=== PATIENT | male | born 1990 | race Hispanic/Latino ===

== ENCOUNTER 2018-07-26 07:19 | Emergency (ER) | payer SELFPAY ==
[2018-07-26] MEDS ORDERED: NA CHLORIDE 0.9% 1,000 ML ONE (07:51)
[2018-07-26] MEDS ORDERED: FAMOTIDINE 20 MG/2 ML VIAL IV ONE (07:51)
[2018-07-26] MEDS ORDERED: ONDANSETRON 4 MG/2 ML VIAL ONE (07:51)
[2018-07-26 08:12] LABS: Absolute Lymphocytes (CBC) 1.7 K/uL (0.7-4.9); Absolute Monocytes 1.1 K/uL (0.1-1.3); Absolute Neutrophil 12.8 K/uL (1.8-8.0); Basophils % 0.3 % (0-1.3); Eosinophils % 0.6 % (0-4.4); Hematocrit 49.3 % (39.6-49.0); Lymphocytes % 11.1 % (15.3-44.8); MCH 29.7 pg (27.0-35.0); MCV 88.1 fL (80-100); MPV 10.1 fL (7.6-11.3); RBC Red Blood Cell Count 5.59 M/uL (4.33-5.43)
[2018-07-26 08:17] LABS: Urine Bacteria 20-50 /HPF (NONE SEEN); Urine RBC <5 /HPF (NONE SEEN)
[2018-07-26 08:18] LABS: Urine Culture Reflex Order REFLEXED; Urine Mucus SLIGHT /HPF (NONE SEEN)
[2018-07-26 08:32] LABS: Bilirubin Direct 0.1 mg/dL (0-0.2); Bilirubin Total 0.7 mg/dL (0.2-1.0); Potassium 3.8 mmol/L (3.5-5.1); Protein, Total 7.6 g/dL (6.4-8.2)
--- NOTE | 2018-07-26 09:11 | EDPHYS ---
Physician Documentation [facility] Name: Frandy Hidalgo Jr Age: 27 yrs Sex: Male : 1990 Arrival Date: 07/26/2018 Time: 07:21 Bed 16 Private MD: ED Physician Asim Mitchell HPI: 07/26 07:35 This 27 yrs old Male presents to ER via Ambulatory with complaints of cp Epigastric Pain, Vomiting, Headache. 07:35 The patient presents with abdominal pain in the epigastric area. Onset: The cp symptoms/episode began/occurred this morning, at 01:00. Associated signs and symptoms: Pertinent positives: nausea and vomiting, diarrhea, left low back pain, Pertinent negatives: blood in stools, fever, headache, vomiting blood. The symptoms are described as stabbing. Severity of pain: in the emergency department the pain is unchanged. Historical: - Allergies: 07:28 No Known Allergies; jl7 ROS: 07:40 Constitutional: Negative for body aches, chills, fever, poor PO intake. cp 07:40 Eyes: Negative for injury, pain, redness, and discharge. cp 07:40 ENT: Negative for drainage from ear(s), ear pain, sore throat, difficulty swallowing, difficulty handling secretions. 07:40 Cardiovascular: Negative for chest pain, edema, palpitations. 07:40 Respiratory: Negative for cough, shortness of breath, wheezing. 07:40 Abdomen/GI: Positive for abdominal pain, nausea, vomiting, diarrhea, Negative for constipation, dysphagia, hematemesis, black/tarry stool, rectal bleeding. 07:40 Back: Positive for pain at rest, of the left low back and left mid back. 07:40 : Negative for urinary symptoms, testicular pain 07:40 Skin: Negative for cellulitis, rash. 07:40 Neuro: Negative for dizziness, headache, weakness. 07:40 All other systems are negative. Exam: 07:45 Constitutional: The patient appears in no acute distress, alert, awake, cp non-diaphoretic, non-toxic, well developed, well nourished. 07:45 Head/Face: Normocephalic, atraumatic. cp 07:45 Eyes: Periorbital structures: appear normal, Conjunctiva: normal, no exudate, no injection, Sclera: no appreciated abnormality, Lids and lashes: appear normal, bilaterally. 07:45 ENT: External ear(s): are unremarkable, Ear canal(s): are normal, clear, TM's: bulging, is not appreciated, bilaterally, dullness, bilaterally, erythema, is not appreciated, bilaterally, Nose: is normal, Mouth: is normal, Posterior pharynx: is normal, airway is patent, no erythema, no exudate. 07:45 Neck: ROM/movement: is normal, is supple, without pain, no range of motions limitations, no nuchal rigidity. 07:45 Chest/axilla: Inspection: normal, Palpation: is normal, no crepitus, no tenderness. 07:45 Cardiovascular: Rate: normal, Rhythm: regular, Heart sounds: murmur, not appreciated, Edema: is not appreciated, JVD: is not appreciated. 07:45 Respiratory: the patient does not display signs of respiratory distress, Respirations: normal, no use of accessory muscles, no retractions, no splinting, no tachypnea, labored breathing, is not present, Breath sounds: are clear throughout, no decreased breath sounds, no stridor, no wheezing. 07:45 Abdomen/GI: Inspection: abdomen appears normal, Bowel sounds: active, all quadrants, Palpation: soft, in all quadrants, moderate abdominal tenderness, in the epigastric area, rebound tenderness, is not appreciated, involuntary guarding, is not appreciated. 07:45 Back: pain, that is mild, of the left low back and left mid back, ROM is normal, Straight leg raises: of both lower extremities does not illicit pain. 07:45 Skin: cellulitis, is not appreciated, no rash present. 07:45 Neuro: Orientation: to person, place \T\ time. Mentation: lucid, able to follow commands, Cerebellar function: is grossly normal, Motor: moves all fours, strength is normal, Sensation: no obvious gross deficits. Vital Signs: 07:28 BP 131 / 83; Pulse 93; Resp 16 S; Temp 99(O); Pulse Ox 99% on R/A; Weight 95.25 kg (R); jl7 Height 5 ft. 8 in. (172.72 cm) (R); Pain 8/10; 08:39 BP 130 / 64; Pulse 66; Resp 15; Pulse Ox 100% on R/A; Pain 3/10; iw 07:28 Body Mass Index 31.93 (95.25 kg, 172.72 cm) jl7 MDM: 07:32 Patient medically screened. cp 09:00 Data reviewed: vital signs, nurses notes, lab test result(s), radiologic studies, plain cp films. 09:00 Refusal of service: The patient/guardian displays adequate decision making capability cp and despite a detailed discussion of alternatives, benefits, risks, and consequences refuses: CT Scan. 07/26 07:30 Order name: Urine Microscopic Only; Complete Time: 08:24 cp 07/26 08:24 Interpretation: Normal except: UBACT 20-50. cp 07/26 07:37 Order name: Basic Metabolic Panel; Complete Time: 08:45 cp 07/26 08:45 Interpretation: Normal except: GLUC 107; GFR 88. cp 07/26 07:37 Order name: CBC with Diff; Complete Time: 08:24 cp 07/26 08:24 Interpretation: Normal except: WBC 15.8; RBC 5.59; HCT 49.3; DONY% 81.0; NEUT A 12.8; cp LYM% 11.1. 07/26 07:37 Order name: Creatinine for Radiology; Complete Time: 08:45 cp 07/26 08:45 Interpretation: Within normal limits. cp 07/26 07:37 Order name: Hepatic Function; Complete Time: 08:45 cp 07/26 08:45 Interpretation: Normal except: GLOB 3.6. cp 07/26 07:37 Order name: Lipase; Complete Time: 08:45 cp 07/26 08:45 Interpretation: Within normal limits: LIP 145. cp 07/26 07:30 Order name: Urine Dipstick-Ancillary (obtain specimen); Complete Time: 07:52 cp 07/26 07:37 Order name: XRAY Chest (1 view) cp 07/26 08:20 Order name: Urine Culture EDMS 07/26 08:44 Order name: Urine Dipstick--Ancillary (enter results) bd 07/26 07:37 Order name: IV Saline Lock; Complete Time: 07:52 cp 07/26 07:37 Order name: Labs collected and sent; Complete Time: 07:52 cp Administered Medications: 07:58 Drug: Pepcid 20 mg Route: IVP; Site: left antecubital; iw 08:50 Follow up: Response: No adverse reaction iw 07:58 Drug: Zofran 4 mg Route: IVP; Site: left antecubital; iw 08:30 Follow up: Response: No adverse reaction iw 07:58 Drug: NS 0.9% 1000 ml Route: IV; Rate: 1 bolus; Site: left antecubital; Disposition: 09:23 Co-signature as Attending Physician, Asim Mitchell MD I agree with the assessment and ishan plan of care. Disposition: 07/26/18 09:10 Patient has left against medical advice. Impression: Epigastric pain. - Patients states they are going to Home. - Condition is Stable. Follow up: Private Physician; When: Today; Reason: Recheck today's complaints. - Problem is new. - Symptoms have improved. Signatures: Dispatcher [employer] EDOH Asim Mitchell MD MD cha Williams, Irene, RN RN iw Asim Noonan PA PA cp Wise, Tara, RN RN tw2 Parveen Samano RN RN jl7 Corrections: (The following items were deleted from the chart) 08:24 08:24 Normal except: WBC 15.8; RBC 5.59; HCT 49.3. cp cp 08:57 08:25 Abdomen Pelvis W Con+CT.RAD.BRZ ordered. [facility] 09:12 09:10 07/26/2018 09:10 Patients has left against medical advice. Impression: Epigastric tw2 pain. Patient states they are going to Home. Condition is Stable. Follow up: Private Physician; When: Today; Reason: Recheck today's complaints. Problem is new. Symptoms have improved. cp
--- NOTE | 2018-07-26 09:13 | ER ---
Nurse's Notes [facility] Name: Frandy Hidalgo Jr Age: 27 yrs Sex: Male : 1990 Arrival Date: 07/26/2018 Time: 07:21 Bed 16 Private MD: Diagnosis: Epigastric pain Presentation: 07/26 07:27 Presenting complaint: Patient states: Epigastric and left low back pain started last jl7 night at 0100, N/V/D since yesterday morning. Transition of care: patient was not received from another setting of care. Onset of symptoms was July 26, 2018. Risk Assessment: Do you want to hurt yourself or someone else? Patient reports no desire to harm self or others. Initial Sepsis Screen: Does the patient meet any 2 criteria? No. Patient's initial sepsis screen is negative. Does the patient have a suspected source of infection? No. Patient's initial sepsis screen is negative. Care prior to arrival: None. 07:27 Method Of Arrival: Ambulatory jl7 07:27 Acuity: ABRAM 3 jl7 Historical: - Allergies: 07:28 No Known Allergies; jl7 Screenin:27 Abuse screen: Denies threats or abuse. Denies injuries from another. Nutritional iw screening: No deficits noted. Tuberculosis screening: No symptoms or risk factors identified. Fall Risk None identified. Assessment: 08:26 General: Appears in no apparent distress. Behavior is calm, cooperative. Pain: iw Complains of pain in epigastric area Pain currently is 7 out of 10 on a pain scale. Quality of pain is described as sharp, Is intermittent. Neuro: Level of Consciousness is awake, alert, obeys commands, Oriented to person, place, time, situation, Moves all extremities. Full function. Cardiovascular: Capillary refill < 3 seconds in bilateral fingers Patient's skin is warm and dry. Respiratory: Respiratory effort is even, unlabored, Respiratory pattern is regular, symmetrical. GI: Abdomen is flat, non-distended, Reports upper abdominal pain, diarrhea, epigastric pain, nausea, vomiting. Derm: Skin is intact, is healthy with good turgor. Musculoskeletal: Range of motion: intact in all extremities. 08:38 Reassessment: Patient appears in no apparent distress at this time. Patient and/or iw family updated on plan of care and expected duration. Pain level reassessed. Patient is alert, oriented x 3, equal unlabored respirations, skin warm/dry/pink. pain now 3/10 Patient states feeling better. Patient states symptoms have improved. 08:58 Reassessment: pt IV infiltrated, pt advised that he needs another IV for CT, pt refuses iw IV, Jose Noonan notified. Pt agrees to sign out AMA. Pt states pain has completely resolved and does not want another IV or CT. Vital Signs: 07:28 BP 131 / 83; Pulse 93; Resp 16 S; Temp 99(O); Pulse Ox 99% on R/A; Weight 95.25 kg (R); jl7 Height 5 ft. 8 in. (172.72 cm) (R); Pain 8/10; 08:39 BP 130 / 64; Pulse 66; Resp 15; Pulse Ox 100% on R/A; Pain 3/10; iw 07:28 Body Mass Index 31.93 (95.25 kg, 172.72 cm) jl7 ED Course: 07:21 Patient arrived in ED. as 07:26 Juany Jones, RN is Primary Nurse. iw 07:28 Asim Noonan PA is PHCP. cp 07:28 Asim Mitchell MD is Attending Physician. cp 07:28 Triage completed. jl7 07:29 Arm band placed on right wrist. jl7 07:50 Initial lab(s) drawn, by me, sent to lab. Inserted saline lock: 20 gauge in left iw antecubital area, using aseptic technique. Blood collected. 08:06 XRAY Chest (1 view) In Process Unspecified. EDMS 08:55 Note: attempted to get pt for ct but he refused the iv, and provider was notified that jr1 he wants to sign out ama. 09:10 No provider procedures requiring assistance completed. IV discontinued, intact, iw bleeding controlled, No redness/swelling at site. Pressure dressing applied. Administered Medications: 07:58 Drug: Pepcid 20 mg Route: IVP; Site: left antecubital; iw 08:50 Follow up: Response: No adverse reaction iw 07:58 Drug: Zofran 4 mg Route: IVP; Site: left antecubital; iw 08:30 Follow up: Response: No adverse reaction iw 07:58 Drug: NS 0.9% 1000 ml Route: IV; Rate: 1 bolus; Site: left antecubital; iw Outcome: 09:10 AMA AMA form signed iw 09:10 Condition: improved 09:10 Discharge instructions given to patient, Instructed on follow up and referral plans. 09:12 Patient left the ED. tw2 Signatures: Dispatcher [employer] EDSherly Dominguez Amelia as Williams, Irene, RN RN iw Asim Noonan PA PA cp Wise, Tara, RN RN tw2 Parveen Samano RN RN jl7
--- NOTE | 2018-07-26 09:16 | RAD REPORT ---
EXAM DESCRIPTION: Vickie Single View07/26/2018 8:06 am CLINICAL HISTORY: Abdominal COMPARISON: none FINDINGS: The lungs appear clear of acute infiltrate. The heart is normal size IMPRESSION: No acute abnormalities displayed
[2018-07-26 19:32] LABS: Urine Blood NEGATIVE (NEG); Urine Glucose NEGATIVE (NEG); Urine Protein NEGATIVE (NEG)
== END 2018-07-26 09:12 | disposition left against medical advice (07) ==
LOC: ER 07:19
DX: R10.13 Epigastric pain (principal)
CPT/HCPCS: 36415; 71045; 80048; 80076; 81003; 81015; 83690; 85025; 87086; 87088; 96374; 96375; 99284; J2405; J7030

== ENCOUNTER 2018-12-06 05:40 | Emergency (ER) | payer SELFPAY ==
[2018-12-06] MEDS ORDERED: CODEINE 30MG/APAP 300MG TAB ONE (06:36)
--- NOTE | 2018-12-06 06:57 | EDPHYS ---
Physician Documentation [facility] Name: Frandy Hidalgo Jr Age: 28 yrs Sex: Male : 1990 Arrival Date: 12/06/2018 Time: 05:41 Bed 6 Private MD: ED Physician Jovanni Camp HPI: 12/06 06:20 This 28 yrs old Male presents to ER via Ambulatory with complaints of Fever, cp Ear Pain, Diarrhea. 06:20 The patient reports fever, not measured (subjective). cp 06:20 Onset: The symptoms/episode began/occurred last night. cp 06:20 Associated signs and symptoms: Pertinent positives: diarrhea, earache. Severity of cp symptoms: in the emergency department the symptoms are unchanged despite home interventions. Historical: - Allergies: 05:59 No Known Allergies; ak1 - Home Meds: 05:59 None [Active]; ak1 - PMHx: 05:59 None; ak1 - PSHx: 05:59 None; ak1 - Immunization history:: Adult Immunizations unknown. - Social history:: Smoking status: Patient uses tobacco products, smokes one pack cigarettes per day. - Ebola Screening: : No symptoms or risks identified at this time. ROS: 06:25 Constitutional: Negative for body aches, chills, fever, poor PO intake. cp 06:25 Eyes: Negative for injury, pain, redness, and discharge. cp 06:25 ENT: Positive for drainage from ear(s), ear pain, Negative for sore throat, difficulty cp swallowing, difficulty handling secretions. 06:25 Neck: Negative for pain with movement, pain at rest, stiffness. 06:25 Cardiovascular: Negative for chest pain, palpitations. 06:25 Respiratory: Negative for cough, wheezing. 06:25 Abdomen/GI: Positive for diarrhea, Negative for abdominal pain, vomiting, constipation. 06:25 Skin: Negative for cellulitis, rash. 06:25 Neuro: Negative for altered mental status, dizziness. 06:25 All other systems are negative. cp Exam: 06:30 Constitutional: The patient appears in no acute distress, alert, awake, non-toxic, well cp developed, well nourished, uncomfortable. 06:30 Head/Face: Normocephalic, atraumatic. cp 06:30 Eyes: Periorbital structures: appear normal, Conjunctiva: normal, no exudate, no injection, Lids and lashes: appear normal, bilaterally. 06:30 ENT: External ear(s): pain with movement, that is moderate, of the left ear canal, Ear canal(s): purulent discharge, in the left canal, TM's: not visable, because of discharge, Examination of the other ear shows no obvious abnormality, Nose: is normal, Mouth: Lips: moist, Oral mucosa: pink and intact, moist, Posterior pharynx: is normal, airway is patent, no erythema, no exudate. 06:30 Neck: ROM/movement: is normal, is supple, without pain, no range of motions limitations, no meningismus, no nuchal rigidity. 06:30 Chest/axilla: Inspection: normal, Palpation: is normal, no crepitus, no tenderness. 06:30 Cardiovascular: Rate: tachycardic, Rhythm: regular. 06:30 Respiratory: the patient does not display signs of respiratory distress, Respirations: normal, no use of accessory muscles, no retractions, no splinting, no tachypnea, labored breathing, is not present, Breath sounds: are clear throughout, no decreased breath sounds, no stridor, no wheezing. 06:30 Abdomen/GI: Inspection: abdomen appears normal, Bowel sounds: active, all quadrants, Palpation: abdomen is soft and non-tender, in all quadrants. 06:30 Skin: cellulitis, is not appreciated, no rash present. cp Vital Signs: 05:59 BP 127 / 72; Pulse 114; Resp 18; Temp 98.4(O); Pulse Ox 99% on R/A; Weight 92.99 kg ak1 (R); Height 5 ft. 9 in. (175.26 cm) (R); Pain 10/10; 06:20 BP 122 / 71; Pulse 107; Resp 18; Pulse Ox 99% on R/A; ak1 05:59 Body Mass Index 30.27 (92.99 kg, 175.26 cm) ak1 MDM: 06:16 Patient medically screened. cp 06:30 Differential diagnosis: otitis media, otitis externa, gastritis. cp 06:54 Data reviewed: vital signs, nurses notes, and as a result, I will discharge patient. cp 06:56 Counseling: I had a detailed discussion with the patient and/or guardian regarding: the cp historical points, exam findings, and any diagnostic results supporting the discharge/admit diagnosis, to return to the emergency department if symptoms worsen or persist or if there are any questions or concerns that arise at home. 06:56 Response to treatment: the patient's symptoms have markedly improved after treatment, john and as a result, I will discharge patient. Administered Medications: 06:26 Drug: Tylenol #3 (300 mg-30 mg) 2 tabs Route: PO; ak1 06:48 Follow up: Response: No adverse reaction ak1 Disposition: 10:23 Co-signature as Attending Physician, Jovanni Camp MD I agree with the assessment and ok plan of care. Disposition: 12/06/18 06:57 Discharged to Home. Impression: Acute suppurative otitis media with spontaneous rupture of ear drum, left ear. - Condition is Stable. - Discharge Instructions: Ear Drops, Adult, Otitis Media, Adult. - Prescriptions for Amoxicillin 875 mg Oral Tablet - take 1 tablet by ORAL route every 12 hours for 10 days; 20 tablet. Ciprodex 0.3- 0.1 % Otic Drops, Suspension - instill 4 drop by OTIC route every 12 hours for 7 days , for ears ONLY; 1 Container. Ibuprofen 800 mg Oral Tablet - take 1 tablet by ORAL route every 8 hours As needed take with food; 30 tablet. Tylenol- Codeine #3 300-30 mg Oral Tablet - take 2 tablets by ORAL route every 6 hours As needed; 10 tablet. - Medication Reconciliation Form, Thank You Letter, Antibiotic Education, Prescription Opioid Use form. - Follow up: Private Physician; When: 2 - 3 days; Reason: Recheck today's complaints. - Problem is new. - Symptoms have improved. Signatures: Germania Padgett RN RN ak1 Zeferino Lehman RN RN hj Asim Noonan PA PA cp Appiah, William, MD MD ok Corrections: (The following items were deleted from the chart) 07:13 06:57 12/06/2018 06:57 Discharged to Home. Impression: Acute suppurative otitis media hj with spontaneous rupture of ear drum, left ear. Condition is Stable. Forms are Medication Reconciliation Form, Thank You Letter, Antibiotic Education, Prescription Opioid Use. Follow up: Private Physician; When: 2 - 3 days; Reason: Recheck today's complaints. Problem is new. Symptoms have improved. john
--- NOTE | 2018-12-06 06:57 | ER ---
Nurse's Notes [facility] Name: Frandy Hidalgo Jr Age: 28 yrs Sex: Male : 1990 Arrival Date: 12/06/2018 Time: 05:41 Bed 6 Private MD: Diagnosis: Acute suppurative otitis media with spontaneous rupture of ear drum, left ear Presentation: 12/06 05:56 Presenting complaint: Patient states: left ear pain since Wednesday with yellow drainage. ak1 pt c/o fever started last night. 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 Onset of symptoms is unknown. Risk Assessment: Do you want to hurt yourself or someone else? Patient reports no desire to harm self or others. Initial Sepsis Screen:. Care prior to arrival: None. 05:56 Method Of Arrival: Ambulatory ak1 05:56 Acuity: BARAM 4 ak1 06:51 Initial Sepsis Screen: Does the patient meet any 2 criteria? No. Patient's initial ak1 sepsis screen is negative. Does the patient have a suspected source of infection? No. Patient's initial sepsis screen is negative. Triage Assessment: 05:59 General: Appears uncomfortable, Behavior is calm, cooperative. Pain: Complains of pain ak1 in left ear. EENT: Reports pain in left ear. Neuro: No deficits noted. Cardiovascular: No deficits noted. Respiratory: No deficits noted. 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 : No signs and/or symptoms were reported regarding the genitourinary system. Derm: Parent/caregiver reports the patient having fever last night. Musculoskeletal: No signs and/or symptoms reported regarding the musculoskeletal system. Historical: - Allergies: 05:59 No Known Allergies; ak1 - Home Meds: 05:59 None [Active]; ak1 - PMHx: 05:59 None; ak1 - PSHx: 05:59 None; ak1 - Immunization history:: Adult Immunizations unknown. - Social history:: Smoking status: Patient uses tobacco products, smokes one pack cigarettes per day. - Ebola Screening: : No symptoms or risks identified at this time. Screenin:20 Abuse screen: Denies threats or abuse. Denies injuries from another. Nutritional ak1 screening: No deficits noted. Tuberculosis screening: No symptoms or risk factors identified. Fall Risk None identified. Assessment: 06:20 Reassessment: Patient appears in no apparent distress at this time. No changes from ak1 previously documented assessment. Patient and/or family updated on plan of care and expected duration. Pain level reassessed. Patient is alert, oriented x 3, equal unlabored respirations, skin warm/dry/pink. see triage assessment. 06:20 GI: Bowel sounds present X 4 quads. Abd is soft and non tender X 4 quads. ak1 Vital Signs: 05:59 BP 127 / 72; Pulse 114; Resp 18; Temp 98.4(O); Pulse Ox 99% on R/A; Weight 92.99 kg ak1 (R); Height 5 ft. 9 in. (175.26 cm) (R); Pain 10/10; 06:20 BP 122 / 71; Pulse 107; Resp 18; Pulse Ox 99% on R/A; ak1 05:59 Body Mass Index 30.27 (92.99 kg, 175.26 cm) ak1 ED Course: 05:41 Patient arrived in ED. am2 05:56 Germania Padgett, RN is Primary Nurse. ak1 05:57 Triage completed. ak1 05:59 Arm band placed on Patient placed in an exam room, on a stretcher, on pulse oximetry, ak1 Patient notified of wait time. 06:13 Asim Noonan PA is PHCP. cp 06:13 Jovanni Camp MD is Attending Physician. cp 06:21 Patient has correct armband on for positive identification. Bed in low position. Call ak1 light in reach. Side rails up X 1. Adult w/ patient. Pulse ox on. NIBP on. 07:11 No provider procedures requiring assistance completed. Patient did not have IV access hj during this emergency room visit. Administered Medications: 06:26 Drug: Tylenol #3 (300 mg-30 mg) 2 tabs Route: PO; ak1 06:48 Follow up: Response: No adverse reaction ak1 Outcome: 06:57 Discharge ordered by . cp 07:12 Discharged to home ambulatory. hj 07:12 Condition: stable 07:12 Discharge instructions given to patient, Instructed on discharge instructions, follow up and referral plans. medication usage, Demonstrated understanding of instructions, follow-up care, medications, Prescriptions given X 3. 07:13 Patient left the ED. hj Signatures: Germania Padgett RN RN ak1 Zeferino Lehman RN RN hj Asim Noonan PA PA cp Moreno, Amanda am2
== END 2018-12-06 07:13 | disposition home or self-care (01) ==
LOC: ER 05:40
DX: H66.012 Acute suppurative otitis media with spontaneous rupture of ear drum, left ear (principal); F17.210 Nicotine dependence, cigarettes, uncomplicated
CPT/HCPCS: 99283